=== PATIENT | male | born 1950 | race Caucasian/White ===

== ENCOUNTER → 2016-07-29 | Outpatient (CLI) | payer BC | END | disposition short-term general hospital (02) | LOC: ULTR 09:40 → CLCARD 09:40 → ULTR 12:12 → EDSTATUS 12:47 | DX: I49.3 Ventricular premature depolarization (principal); R07.89 Other chest pain; I10 Essential (primary) hypertension; E78.5 Hyperlipidemia, unspecified; E11.9 Type 2 diabetes mellitus without complications; I34.0 Nonrheumatic mitral (valve) insufficiency; I07.1 Rheumatic tricuspid insufficiency; I35.9 Nonrheumatic aortic valve disorder, unspecified; Z79.899 Other long term (current) drug therapy ==

== ENCOUNTER → 2016-08-12 | Outpatient (CLI) | payer BC | END | disposition short-term general hospital (02) | LOC: CLCARD 08:29 | DX: I48.0 Paroxysmal atrial fibrillation (principal); I10 Essential (primary) hypertension; E78.5 Hyperlipidemia, unspecified; E11.9 Type 2 diabetes mellitus without complications ==

== ENCOUNTER → 2016-09-16 | Outpatient (CLI) | payer BC | END | disposition short-term general hospital (02) | LOC: CLCARD 12:19 | DX: I48.0 Paroxysmal atrial fibrillation (principal); I44.0 Atrioventricular block, first degree; I10 Essential (primary) hypertension; E78.5 Hyperlipidemia, unspecified; E11.9 Type 2 diabetes mellitus without complications ==